=== PATIENT | female | born 1985 | race African-American/Black ===

== ENCOUNTER 2016-12-25 17:39 | Emergency (ER) | payer OTHER ==
[~2016-12-25] VITALS: Ht 172.7 cm; Wt 164.2 kg
[~2016-12-25 17:39] MED LIST: ACYCLOVIR400 MG ORAL; ALBUTEROL SULF8.5 GM INH; AZITHROMYCIN250 MG ORAL; FLEXERIL10 MG PO; IBUPROFEN600 MG ORAL; KEFLEX500 MG ORAL; MYLANTA30 M1 GT; NAPROSYN500 M1 ORAL; NORCO 5-325 TA1 EACH ORAL; NORCO 5-325 TA1 EACH PO; PROMETHAZINE-C118 M1 ORAL; ULTRAM50 MG ORAL
[2016-12-25] MEDS ORDERED: TESSALON PERLE100 MG ORAL (18:25)
[2016-12-25] MEDS ORDERED: AMOXICILLIN500 MG ORAL (18:25)
[2016-12-25 18:46] VITALS: BP 136/80
--- NOTE | 2016-12-27 13:44 | Emergency Room Report ---
History of Present Illness General Chief Complaint: Chest Pain Source: Patient Present Illness HPI The patient is a 31-year-old female presenting for possible upper respiratory infection and chest pain. The patient states that she has had a dry cough, subjective fevers, and sore throat for the past 2 weeks. She has tried multiple [id number] medications which have not helped. She denies any sick contacts recent travel. She is also complaining of left-sided chest pain which began yesterday it is described as a 7/10 constant dull ache. The pain radiates to the left shoulder. She states that she has had this in the past and has seen a commuter pilot but has not been diagnosed with anything. She states that the pain began after eating. She has tried aspirin which has not helped. She denies any known reason for the onset of chest pain including physical activity or injury. She denies any other symptoms including nausea, vomiting, SOB, rash, back pain, abd pain Allergies: Coded Allergies: No Known Allergies (Unverified , 09/03/12) Patient History Past Medical History: see triage record Pertinent Family History: none Last Menstrual Period: 12/08/16 Now: No Reviewed Nursing Documentation: PMH: Agreed, PSxH: Agreed Nursing Documentation-PMH Past Medical History: No Stated History Hx Asthma: Yes Review of Systems All Other Systems: negative except mentioned in HPI Physical Exam Vital Signs Date Time Temp Pulse Resp B/P Pulse Ox O2 Delivery O2 Flow Rate FiO2 12/25/16 17:56 70 16 136/80 95 Room Air Sp02 EP Interpretation: reviewed, normal General Appearance: no apparent distress, alert, GCS 15, non-toxic Head: normocephalic, atraumatic Eyes: bilateral eye PERRL, bilateral eye normal inspection ENT: hearing grossly normal, no angioedema, normal voice, tonsillar swelling, pharyngeal erythema Neck: full range of motion, supple/symm/no masses Respiratory: chest non-tender, lungs clear, normal breath sounds, no respiratory distress, no wheezing, speaking full sentences Cardiovascular #1: normal inspection, normal peripheral pulses, regular rate, rhythm, no edema, no murmur Gastrointestinal: normal bowel sounds, non tender, soft, non-distended, no guarding, no rebound Neurologic: alert, oriented x3, responsive, motor strength/tone normal, sensory intact, speech normal Psychiatric: judgement/insight normal, memory normal, mood/affect normal, no suicidal/homicidal ideation Skin: normal color, no rash, warm/dry, well hydrated Lymphatic: no adenopathy Medical Decision Making PA Attestation Dr. Thapa is my supervising physician. Patient management was discussed with my supervising physician Diagnostic Impression: Primary Impression: Pharyngitis, acute Qualified Codes: J02.9 - Acute pharyngitis, unspecified Additional Impression: Chest pain Qualified Codes: R07.9 - Chest pain, unspecified ER Course The patient is a 31-year-old female presenting for possible upper respiratory infection and chest pain Differential diagnosis include but not limited to pharyngitis, sinusitis, AOM, bronchitis, PNA Differential diagnosis include but not limited to ACS, PE,CHF, pneumonia, gastritis Physical exam: Vitals within normal limits. Afebrile. No apparent distress HEENT exam: There is bilateral tonsillar edema, erythema, and exudate. Uvula midline. Moist mucous membranes. RRR. No chest tenderness. Lungs CTA bilat. There is no cervical lymphadenopathy. Skin is warm and dry. No rash EKG unremarkable. The patient will be discharged home with a prescription for amoxicillin and is given ER precautions. Patient will followup with primary care and commuter pilot. EKG Diagnostic Results Rate: normal Rhythm: NSR ST Segments: no acute changes ASA given to the pt in ED: No PA Scribe Text EKG was reviewed and read with my supervising physician. No acute ST segment changes are seen. Normal rate and rhythm. No acute changes. Last Vital Signs Date Time Temp Pulse Resp B/P Pulse Ox O2 Delivery O2 Flow Rate FiO2 12/25/16 18:46 78 16 136/80 96 Room Air Status: improved Disposition: HOME, SELF-CARE Condition: Improved Scripts Benzonatate* (TESSALON PERLE*) 100 Mg Capsule 100 MG ORAL THREE TIMES A DAY, #15 PERLE Prov: TERZIAN,ROSY P.A. 12/25/16 Amoxicillin* (AMOXIL*) 500 Mg Capsule 500 MG ORAL Q12HR, #20 CAP Prov: TERZIAN,ROSY P.A. 12/25/16 Referrals: [facility],REFERRING (PCP) Patient Instructions: Nonspecific Chest Pain Additional Instructions: I discussed my findings with the patient. All questions and concerns have been answered. Treatment and medication compliance have been addressed. I advised the patient that they need to follow up with PMD in 3-5 days. Return to ED if symptoms worsen, new symptoms arise, or if needed for any reason. Patient verbalized understanding of discharge instructions. The patient will follow up with commuter pilot and Primary doctor as discussed ROSY ABDALLA December 27, 2016 13:44
== END 2016-12-25 18:48 | disposition home or self-care (01) ==
LOC: EMR 18:15
DX: J02.9 Acute pharyngitis, unspecified (principal); R07.9 Chest pain, unspecified; M25.512 Pain in left shoulder; J45.909 Unspecified asthma, uncomplicated
CPT/HCPCS: 99284

== ENCOUNTER 2018-06-14 19:34 | Emergency (ER) | payer SELFPAY ==
[~2018-06-14] VITALS: Ht 170.2 cm; Wt 163.3 kg
[~2018-06-14 19:34] MED LIST changes: +AMOXICILLIN500 MG ORAL; +TESSALON PERLE100 MG ORAL
[2018-06-14] MEDS ORDERED: Dicyclomine HCl 10mg/5ml oral soln ORAL ONE (20:15)
[2018-06-14] MEDS ORDERED: Mylanta II UD 30ml ORAL ONE (20:15)
[2018-06-14] MEDS ORDERED: Lidocaine 2% Visc 15ml soln ORAL ONE (20:15)
[2018-06-14] MEDS ORDERED: Ketorolac 30mg Inj IV ONE (20:15)
--- NOTE | 2018-06-14 20:32 | Emergency Room Report ---
History of Present Illness General Chief Complaint: Pain Source: Patient Present Illness HPI Patient is a 32-year-old female who presented after increased fever and epigastric pain. The patient reports having increased intermittent abdominal discomfort. This did not radiate. Patient associated fever up to 38.5. Patient not been vomiting. She reports having generalized body aches. She denies any dysuria. She denied any cough or sore throat. Allergies: Coded Allergies: No Known Allergies (Unverified , 09/03/12) Patient History Past Medical History: see triage record Last Menstrual Period: 05/19/2018 Now: No : 0 Para: 0 Reviewed Nursing Documentation: PMH: Agreed; PSxH: Agreed Nursing Documentation-PMH Past Medical History: No History, Except For Hx Asthma: Yes Review of Systems All Other Systems: negative except mentioned in HPI Physical Exam Vital Signs Date Time Temp Pulse Resp B/P (MAP) Pulse Ox O2 Delivery O2 Flow Rate FiO2 06/14/18 19:47 98.4 75 16 128/80 98 Sp02 EP Interpretation: reviewed, normal General Appearance: normal inspection, well appearing, no apparent distress, alert, obese Head: atraumatic ENT: normal ENT inspection, hearing grossly normal, normal voice Neck: normal inspection, full range of motion, supple, no bony tend Respiratory: normal inspection, lungs clear, normal breath sounds, no respiratory distress, no retraction, no wheezing Cardiovascular #1: regular rate, rhythm, no edema Gastrointestinal: normal inspection, normal bowel sounds, non tender, soft, no guarding, no hernia, tenderness - epigastric Genitourinary: no CVA tenderness Musculoskeletal: normal inspection, back normal, normal range of motion Neurologic: normal inspection, alert, responsive, speech normal Psychiatric: normal inspection, judgement/insight normal, mood/affect normal Skin: normal inspection, normal color, no rash Medical Decision Making Diagnostic Impression: Primary Impression: Urinary tract infection ER Course Patient presented for abdominal pain. Differential diagnoses included ischemic bowel, appendicitis, perforated viscus, abdominal aortic aneurysm, inferior myocardial infarction, viral gastroenteritis Because of complexity of patient's case laboratory testing and imaging studies were ordered. The laboratory testing was unremarkable except for some evidence of urinary infection. Patient was given protrusion for antibiotics as well as antispasmodic medications. She is advised to continue taking ibuprofen for fever.The patient is advised to follow up with primary care doctor in 1-2 days. Patient is advised to return if any worsening condition or if any changes in status that are concerning. This report is dictated with [employer] rolling mill operator software which may occasionally lead to discrepancies related to use of this software. Labs Test 06/14/18 20:40 06/14/18 20:45 06/14/18 21:25 White Blood Count 9.0 K/UL (4.8-10.8) Red Blood Count 4.99 M/UL (4.20-5.40) Hemoglobin 13.2 G/DL (12.0-16.0) Hematocrit 41.1 % (37.0-47.0) Mean Corpuscular Volume 82 FL (80-99) Mean Corpuscular Hemoglobin 26.5 PG (27.0-31.0) Mean Corpuscular Hemoglobin Concent 32.2 G/DL (32.0-36.0) Red Cell Distribution Width 13.2 % (11.6-14.8) Platelet Count 243 K/UL (150-450) Mean Platelet Volume 8.4 FL (6.5-10.1) Neutrophils (%) (Auto) 65.4 % (45.0-75.0) Lymphocytes (%) (Auto) 28.2 % (20.0-45.0) Monocytes (%) (Auto) 3.9 % (1.0-10.0) Eosinophils (%) (Auto) 1.4 % (0.0-3.0) Basophils (%) (Auto) 1.0 % (0.0-2.0) Sodium Level 139 MMOL/L (136-145) Potassium Level 3.5 MMOL/L (3.5-5.1) Chloride Level 105 MMOL/L (98-107) Carbon Dioxide Level 26 MMOL/L (21-32) Anion Gap 8 mmol/L (5-15) Blood Urea Nitrogen 10 mg/dL (7-18) Creatinine 1.2 MG/DL (0.55-1.30) Estimat Glomerular Filtration Rate > 60 mL/min (>60) Glucose Level 137 MG/DL (74-106) Calcium Level 8.9 MG/DL (8.5-10.1) Total Bilirubin 0.3 MG/DL (0.2-1.0) Aspartate Amino Transf (AST/SGOT) 19 U/L (15-37) Alanine Aminotransferase (ALT/SGPT) 18 U/L (12-78) Alkaline Phosphatase 46 U/L (46-116) Total Protein 6.6 G/DL (6.4-8.2) Albumin 3.3 G/DL (3.4-5.0) Globulin 3.3 g/dL Albumin/Globulin Ratio 1.0 (1.0-2.7) Lipase 79 U/L (73-393) Urine Color [place] Urine Appearance Slightly cloudy Urine pH 6 (4.5-8.0) Urine Specific [place] 1.020 (1.005-1.035) Urine Protein 1+ (NEGATIVE) Urine Glucose (UA) Negative (NEGATIVE) Urine Ketones 1+ (NEGATIVE) Urine Blood Negative (NEGATIVE) Urine Nitrite Negative (NEGATIVE) Urine Bilirubin Negative (NEGATIVE) Urine Ictotest Negative (NEGATIVE) Urine Urobilinogen 4 MG/DL (0.0-1.0) Urine Leukocyte Esterase 1+ (NEGATIVE) Urine RBC 0 /HPF (0 - 2) Urine WBC 5-10 /HPF (0 - 2) Urine Squamous Epithelial Cells Many /LPF (NONE/OCC) Urine Bacteria Moderate /HPF (NONE) Urine HCG, Qualitative Negative (NEGATIVE) Urine Opiates Screen Negative (NEGATIVE) Urine Barbiturates Screen Negative (NEGATIVE) Phencyclidine (PCP) Screen Negative (NEGATIVE) Urine Amphetamines Screen Negative (NEGATIVE) Urine Benzodiazepines Screen Negative (NEGATIVE) Urine Cocaine Screen Negative (NEGATIVE) Urine Marijuana (THC) Screen Negative (NEGATIVE) Lactic Acid Level 1.10 mmol/L (0.4-2.0) Last Vital Signs Date Time Temp Pulse Resp B/P (MAP) Pulse Ox O2 Delivery O2 Flow Rate FiO2 06/14/18 19:47 98.4 75 16 128/80 98 Status: improved Disposition: HOME, SELF-CARE Condition: Stable Scripts Dicyclomine Hcl* (DICYCLOMINE HCL*) 10 Mg Capsule 10 MG PO QID, #30 CAP Prov: Drew Avelar MD 06/14/18 Cephalexin* (KEFLEX*) 500 Mg Capsule 500 MG ORAL EVERY 6 HOURS, #40 CAP Prov: Drew Avelar MD 06/14/18 Referrals: NOT CHOSEN [facility]/,REFERRING (PCP) Drew Avelar MD Jun 14, 2018 20:32
[2018-06-14 20:40] VITALS: BP 133/73
[2018-06-14 21:04] LABS: EOSINOPHILS % (AUTO) 1.4 % (0.0-3.0); HEMATOCRIT 41.1 % (37.0-47.0); HEMOGLOBIN 13.2 G/DL (12.0-16.0); LYMPHOCYTES % (AUTO) 28.2 % (20.0-45.0); MEAN CORPUSCULAR VOLUME 82 FL (80-99); MONOCYTES % (AUTO) 3.9 % (1.0-10.0); NEUTROPHILS % (AUTO) 65.4 % (45.0-75.0); PLATELET COUNT 243 K/UL (150-450); RED BLOOD COUNT 4.99 M/UL (4.20-5.40); RED CELL DISTRIBUTION WIDTH 13.2 % (11.6-14.8)
[2018-06-14 21:57] LABS: APPEARANCE,URINE SLIGHTLY CLOUDY; BILIRUBIN, URINE NEGATIVE (NEGATIVE); COLOR,URINE AMBER; GLUCOSE, URINE (UA) NEGATIVE (NEGATIVE); KETONES,URINE 1+ (NEGATIVE); LEUKOCYTE ESTERASE ,URINE 1+ (NEGATIVE); NITRITE,URINE NEGATIVE (NEGATIVE); PH,URINE 6 (4.5-8.0); PROTEIN,URINE 1+ (NEGATIVE); UROBILINOGEN,URINE 4 MG/DL (0.0-1.0)
[2018-06-14 22:07] LABS: ANION GAP 8 mmol/L (5-15); BLOOD UREA NITROGEN 10 mg/dL (7-18); CALCIUM 8.9 MG/DL (8.5-10.1); CARBON DIOXIDE 26 MMOL/L (21-32); CHLORIDE 105 MMOL/L (98-107); CREATININE 1.2 MG/DL (0.55-1.30); POTASSIUM 3.5 MMOL/L (3.5-5.1); SODIUM 139 MMOL/L (136-145)
[2018-06-14 22:12] LABS: ALANINE AMINOTRANSFERASE 18 U/L (12-78); ALBUMIN 3.3 G/DL (3.4-5.0); ALKALINE PHOSPHATASE 46 U/L (46-116); ASPARTATE AMINO TRANSFERASE 19 U/L (15-37); BILIRUBIN,TOTAL 0.3 MG/DL (0.2-1.0)
[2018-06-14] MEDS ORDERED: DICYCLOMINE HCL10 MG PO (22:22)
[2018-06-14] MEDS ORDERED: CEPHALEXIN500 MG ORAL (22:22)
[2018-06-14 22:35] VITALS: BP 129/67
[2018-06-14 22:50] VITALS: BP 129/77
--- NOTE | 2018-06-15 11:14 | Diagnostic Imaging Report ---
EXAM: US Abdomen Limited, Right Upper Quadrant CLINICAL HISTORY: ABD PAIN TECHNIQUE: Real-time ultrasound of the right upper quadrant with image documentation. COMPARISON: No relevant prior studies available. FINDINGS: Limitations: Exam degraded by large body habitus. Liver: Liver diameter of 17.5 cm, within normal limits. No visible parenchymal lesions. No ductal dilatation. Gallbladder: Unremarkable. No gallstones. Gallbladder wall thickness of 2 mm is within normal limits. No pericholecystic fluid. Common bile duct: Common bile duct diameter of 3 mm. No stones. No dilation. Pancreas: Visualized portions of the pancreas appear unremarkable. Pancreatic body and tail are obscured by bowel gas. Right kidney: Right kidney measures 9.1 x 4.8 x 5.8 cm. Normal cortical thickness. No visible parenchymal lesions. No visible stones. No hydronephrosis. IMPRESSION: No acute findings.
== END 2018-06-14 23:03 | disposition home or self-care (01) ==
LOC: EMR 19:59
DX: N39.0 Urinary tract infection, site not specified (principal); J45.909 Unspecified asthma, uncomplicated
CPT/HCPCS: 36415; 76700; 80053; 80307; 81003; 81025; 83605; 83690; 85025; 87040; 87086; 96374; 96375; 99284; J1885; J2405

== ENCOUNTER 2018-11-12 14:38 | Emergency (ER) | payer SELFPAY ==
[~2018-11-12] VITALS: Ht 170.2 cm; Wt 165.6 kg
[~2018-11-12 14:38] MED LIST changes: +CEPHALEXIN500 MG ORAL; +DICYCLOMINE HCL10 MG PO
[2018-11-12 15:18] VITALS: BP 140/79
--- NOTE | 2018-11-12 15:23 | Emergency Room Report ---
History of Present Illness General Chief Complaint: Upper Respiratory Illness Source: Patient Present Illness HPI 33-year-old female patient presents ER complaining of cough and congestion for the past several days. Reports cough with sputum. Denies hemoptysis. Denies chest pain or shortness of breath. Denies history of asthma. Reports is been taking Motrin and Mucinex for congestion symptoms. Also complaining of lower back pain since yesterday. Reports history of similar pain symptoms in the past. Denies acute injury or trauma. Reports pain symptoms began when she was going to stand up. Denies radiation of pain symptoms. Denies bowel bladder incontinence. Denies history of IV drug use. Denies dysuria, hematuria. Denies vaginal discharge. Denies other aggravating or relieving factors. Allergies: Coded Allergies: No Known Allergies (Unverified , 09/03/12) Patient History Past Medical History: see triage record Last Menstrual Period: 3-23 Now: No Reviewed Nursing Documentation: PMH: Agreed; PSxH: Agreed Nursing Documentation-PMH Past Medical History: No History, Except For Hx Asthma: Yes Review of Systems All Other Systems: negative except mentioned in HPI Physical Exam Vital Signs Date Time Temp Pulse Resp B/P (MAP) Pulse Ox O2 Delivery O2 Flow Rate FiO2 11/12/18 14:49 98.1 56 20 140/79 97 Room Air Sp02 EP Interpretation: reviewed, normal General Appearance: well appearing, no apparent distress, alert, GCS 15, non- toxic Head: normocephalic, atraumatic Eyes: bilateral eye normal inspection, bilateral eye PERRL ENT: hearing grossly normal, normal pharynx, no angioedema, normal voice, uvula midline, moist mucus membranes Neck: full range of motion, no meningismus, no bony tend Respiratory: lungs clear, normal breath sounds, no rhonchi, no respiratory distress, no accessory muscle use, no wheezing, speaking full sentences Cardiovascular #1: regular rate, rhythm, no edema Gastrointestinal: non tender, soft, no mass, non-distended, no guarding, no rebound Genitourinary: no CVA tenderness Musculoskeletal: back normal, digits/nails normal, gait/station normal, normal range of motion, non-tender, no calf tenderness, Leticia's Sign negative Neurologic: alert, oriented x3, responsive, motor strength/tone normal, SLR negative, sensory intact Psychiatric: mood/affect normal Skin: no rash Medical Decision Making PA Attestation Dr. Ma is my supervising Physician whom patient management has been discussed with. Diagnostic Impression: Primary Impression: Upper respiratory infection Additional Impressions: Back pain Hepatic dysfunction ER Course Pt presents to ED c/o back pain and cough and congestion. DDX considered but are not limited to sprain, strain, cauda equina, epidural abscess, AAA, spinal cord compression, muscle spasm, herniated disc, viral URI , pneumonia, sinusitis. Low suspicion for cauda equina, no bowel or bladder incontinence or retention. No fever, nontoxic appearing, no radiation of pain, low suspicion for epidural mass. No abdominal pain, no blood pressure elevation, nontoxic appearing, low suspicion for AAA. VITAL SIGNS are WNL, patient is afebrile ER COURSE: Medication provided in the ER. Chest xray shows no acute disease per the preliminary reading. Lung sounds clear to auscultation, patient afebrile, low suspicion for pneumonia. Denies acute injury or trauma, does not require x-ray at this time. Will provide with medication in the ER. Followup with pain management and/or PT. Request referral from PCP. Followup wtih PCP for further MRI and/or CT imaging as needed. Denies vomiting or diarrhea, denies abdominal pain, does not require abdominal workup at this time. Elevated urobilinogen likely secondary to history of fatty liver and recent alcohol use. Advised patient to discontinue excessive alcohol use. Follow-up with primary care provider discussed referral to GI specialist. ER precautions given. Patient resting comfortably no acute distress states symptoms have improved while in the ER., DISCHARGE: At this time pt. is stable for d/c to home. At this time patient is resting comfortably, in no acute distress, nontoxic appearing, smiling and talking without difficulty. Will provide printed patient care instructions, and any necessary prescriptions. Patient instructed to follow with primary care provider for further treatment and referral as needed. Care plan and follow up instructions have been discussed with the patient prior to discharge. Patient reports understanding and agreement to treatment plan. Patient questions asked and answered. ER precautions given, patient instructed to return to ER immediately for any new or worsening of symptoms. - Please note that this Emergency Department Report was dictated using [employer] medical technologist technology software, occasionally this can lead to erroneous entry secondary to interpretation by the dictation equipment. Labs Test 3/27/19 15:24 Urine Color Yellow Urine Appearance Clear Urine pH 7 (4.5-8.0) Urine Specific [place] 1.015 (1.005-1.035) Urine Protein 1+ (NEGATIVE) Urine Glucose (UA) Negative (NEGATIVE) Urine Ketones 1+ (NEGATIVE) Urine Blood 1+ (NEGATIVE) Urine Nitrite Negative (NEGATIVE) Urine Bilirubin Negative (NEGATIVE) Urine Urobilinogen 12 MG/DL (0.0-1.0) Urine Leukocyte Esterase 1+ (NEGATIVE) Urine RBC 0-2 /HPF (0 - 2) Urine WBC 0-2 /HPF (0 - 2) Urine Squamous Epithelial Cells Few /LPF (NONE/OCC) Urine Bacteria Few /HPF (NONE) Urine Mucus Moderate /LPF (NONE/OCC) Chest X-Ray Diagnostic Results Chest X-Ray Diagnostic Results : Chest X-Ray Ordered: Yes # of Views/Limited/Complete: 1 View Indication: Chest Pain EP Interpretation: Yes PA Xray: Interpretation reviewed, by supervising MD, and agrees with findings. Interpretation: no consolidation, no effusion, no pneumothorax, no acute cardiopulmonary disease Impression: No acute disease BETY Scribe Text Andrews Sharpe PA-C Last Vital Signs Date Time Temp Pulse Resp B/P (MAP) Pulse Ox O2 Delivery O2 Flow Rate FiO2 11/12/18 15:18 98.1 62 22 140/79 98 Room Air Status: improved Disposition: HOME, SELF-CARE Condition: Stable Scripts Benzonatate* (TESSALON PERLE*) 100 Mg Capsule 100 MG ORAL THREE TIMES A DAY, #30 PERLE Prov: Josué Sharpe.A. 11/12/18 Methocarbamol* (ROBAXIN*) 500 Mg Tablet 500 MG PO TID, #21 TAB 0 Refills Prov: Josué Sharpe.A. 11/12/18 Ibuprofen* (MOTRIN*) 600 Mg Tablet 600 MG ORAL Q8H PRN for For Pain, #30 TAB 0 Refills Prov: Josué Sharpe.A. 11/12/18 Lidocaine (Lidocaine) 1 Each Adh..patch 5 % TP DAILY for 7 Days, #7 PATCH Prov: Josué Sharpe.A. 11/12/18 Patient Instructions: Alcoholic Liver Disease, [id number], Back Pain, Adult, [id number], Cirrhosis, Upper Respiratory Infection, Adult Additional Instructions: Patient instructed to follow up with primary care provider 3-5 and discuss further referral and imaging at that time. Patient instructed on rest, ice and heat. Discussed referral to GI specialist for further liver evaluation due to elevated urobilinogen. Do not take muscle relaxant prior to drinking, driving, or operating heavy machinery. Take medications as directed. Patient questions asked and answered. ER precautions given, patient instructed to return to ER immediately for any new or worsening of symptoms. [facility] [address] [facility] [address] [facility], [id number] [email or web address] Josué Sharpe Nov 12, 2018 15:23
[2018-11-12] MEDS ORDERED: Methocarbamol 500mg tab ORAL ONE (15:30)
[2018-11-12] MEDS ORDERED: Benzonatate 100mg Perles ORAL ONE (15:30)
[2018-11-12 15:31] LABS: APPEARANCE,URINE CLEAR; BILIRUBIN, URINE NEGATIVE (NEGATIVE); GLUCOSE, URINE (UA) NEGATIVE (NEGATIVE); KETONES,URINE 1+ (NEGATIVE); LEUKOCYTE ESTERASE ,URINE 1+ (NEGATIVE); NITRITE,URINE NEGATIVE (NEGATIVE); PH,URINE 7 (4.5-8.0); PROTEIN,URINE 1+ (NEGATIVE); UROBILINOGEN,URINE 12 MG/DL (0.0-1.0)
[2018-11-12 15:33] LABS: COLOR,URINE YELLOW
--- NOTE | 2018-11-12 15:56 | Diagnostic Imaging Report ---
Indication: Cough Comparison: 08/17/2016 A single view chest radiograph was obtained. Findings: Cardiomediastinal appearance is within normal limits for age. The lungs are clear. Pulmonary vascularity is appropriate. The diaphragmatic contour is smooth and costophrenic angles are sharp. No pleural effusions are identified. The bones are unremarkable. Impression: No acute findings
[2018-11-12] MEDS ORDERED: LIDOCAINE700 M1 TP (16:06)
[2018-11-12] MEDS ORDERED: ROBAXIN500 MG PO (16:06)
[2018-11-12] MEDS ORDERED: IBUPROFEN600 MG ORAL (16:06)
[2018-11-12] MEDS ORDERED: TESSALON PERLE100 MG ORAL (16:12)
[2018-11-12 16:32] VITALS: BP 140/79
== END 2018-11-12 16:20 | disposition home or self-care (01) ==
LOC: EMR 15:27
DX: J06.9 Acute upper respiratory infection, unspecified (principal); M54.9 Dorsalgia, unspecified; K76.9 Liver disease, unspecified; M54.5 Low back pain
CPT/HCPCS: 71045; 81003; 99283

== ENCOUNTER 2019-01-06 07:56 | Emergency (ER) | payer MEDICAID ==
[~2019-01-06] VITALS: Ht 172.7 cm; Wt 74.8 kg
[~2019-01-06 07:56] MED LIST changes: +LIDOCAINE700 M1 TP; +ROBAXIN500 MG PO
[2019-01-06 07:59] VITALS: BP 175/83
[2019-01-06] MEDS ORDERED: NKM (08:03)
--- NOTE | 2019-01-06 08:08 | NUR ---
ED Nurse Note: Patient walked into ED c/o right hip pain for 1 month. patient reports no injuy or fall. patient reports "it just gives out." patient reports 10/10 pain. patient also reports sorethroat for 3 days. patient denies fever or chills. patient is alert awake x4 ambulatory, breathing unlabored and even.
--- NOTE | 2019-01-06 08:57 | Emergency Room Report ---
History of Present Illness General Chief Complaint: Pain Source: Patient Present Illness HPI She has 2 separate complaints. She states that she has had right sided hip and right-sided leg pain for many months. She has been seen here previously for the same symptoms. She also has a history of low back pain. She denies weakness. She denies tingling or numbness. She states the pain is sharp and down her right leg and hip. She denies loss of bowel or bladder control. She has had x-rays of the back and the right hip and states that these have been negative. She has not followed up with an him specialist. Complains of sore throat for the past 3 days. She states it is painful when swallowing. She denies chest pain or shortness of breath. She denies fever chills. She states she does have ear fullness but denies ear pain. She denies headache or neck stiffness. She denies blurry vision. She has no other complaints. Allergies: Coded Allergies: No Known Allergies (Unverified , 09/03/12) Patient History Past Medical History: see triage record, asthma Social History: Denies: smoking, alcohol use, drug use Last Menstrual Period: 12/15/2018 Now: No Reviewed Nursing Documentation: PMH: Agreed; PSxH: Agreed Nursing Documentation-PMH Past Medical History: No History, Except For Hx Cardiac Problems: No Hx Hypertension: No Hx Pacemaker: No Hx Asthma: Yes Hx COPD: No Hx Diabetes: No Hx Cancer: No Hx Gastrointestinal Problems: No Hx Dialysis: No History Of Psychiatric Problem: No Hx Neurological Problems: No Hx Cerebrovascular Accident: No Hx Seizures: No Review of Systems All Other Systems: negative except mentioned in HPI Physical Exam Vital Signs Date Time Temp Pulse Resp B/P (MAP) Pulse Ox O2 Delivery O2 Flow Rate FiO2 01/06/19 07:59 98.1 64 16 95 Room Air 01/06/19 07:59 175/83 Sp02 EP Interpretation: reviewed, normal General Appearance: no apparent distress, alert, GCS 15, non-toxic, obese Head: normocephalic, atraumatic Eyes: bilateral eye normal inspection, bilateral eye PERRL ENT: hearing grossly normal, no angioedema, normal voice, TMs + canals normal, uvula midline, moist mucus membranes, tonsillar swelling, tonsillar exudate Neck: full range of motion, supple/symm/no masses Respiratory: chest non-tender, lungs clear, normal breath sounds, no respiratory distress, no retraction, no accessory muscle use, speaking full sentences Cardiovascular #1: regular rate, rhythm, no edema Gastrointestinal: normal bowel sounds, non tender, soft, non-distended, no guarding, no rebound Rectal: deferred Musculoskeletal: gait/station normal, normal range of motion, other - Pain with walking. No pain w/ ROM of R. hip. Neurologic: alert, oriented x3, responsive, motor strength/tone normal, sensory intact, speech normal Psychiatric: judgement/insight normal, memory normal, mood/affect normal, no suicidal/homicidal ideation Skin: normal color, no rash, warm/dry, well hydrated Medical Decision Making Diagnostic Impression: Primary Impression: Strep pharyngitis Additional Impression: Sciatica of right side ER Course Patient has findings on exam consistent with strep pharyngitis. There is no evidence of peritonsillar abscess or deep neck abscess. The patient overall is nontoxic and well-appearing. Patient was given penicillin IM. The patient other complaint of chronic right hip pain is likely sciatica related to degenerative disc disease. The patient is morbidly obese and likely has pain related to the pressure on the back and joints from obesity. The patient was instructed that she would need to follow-up with an him specialist and would also need to try to lose weight. Patient will be referred to the orthopedic urgent care. I have a low suspicion for a serious etiology to the patient's musculoskeletal pain. I have low suspicion for cauda equina or neurologic emergency. The patient is given close return precautions and follow- up instructions. Last Vital Signs Date Time Temp Pulse Resp B/P (MAP) Pulse Ox O2 Delivery O2 Flow Rate FiO2 01/06/19 07:59 98.1 64 16 175/83 95 Room Air Status: improved Disposition: HOME, SELF-CARE Condition: Improved Jazmine Thapa DO January 06, 2019 08:56
[2019-01-06] MEDS ORDERED: IBUPROFEN800 MG ORAL (08:59)
[2019-01-06] MEDS ORDERED: Ketorolac 60mg Inj IM ONE (09:00)
[2019-01-06] MEDS ORDERED: Bicillin LA 1.2MMU/2ML SYR IM ONE (09:00)
[2019-01-06 09:05] VITALS: BP 175/83
--- NOTE | 2019-01-06 09:05 | NUR ---
ER DISCHARGE NOTE: Patient is cleared to be discharged per ERMD Dr. Thapa, pt is aox4, on room air, with stable vital signs. pt was given dc and prescription instructions, pt was able to verbalize understanding, pt id band removed without complications. pt is able to ambulate with steady gait. pt took all belongings.
== END 2019-01-06 09:05 | disposition home or self-care (01) ==
LOC: EMR 09:05
DX: M54.31 Sciatica, right side (principal); J02.9 Acute pharyngitis, unspecified; E66.01 Morbid (severe) obesity due to excess calories; Z68.25 Body mass index [BMI] 25.0-25.9, adult
CPT/HCPCS: 96372; 99283; J0561

== ENCOUNTER 2019-04-30 07:28 | Emergency (ER) | payer MEDICAID ==
[~2019-04-30] VITALS: Ht 170.2 cm; Wt 165.6 kg
[~2019-04-30 07:28] MED LIST changes: +IBUPROFEN800 MG ORAL; +NKM
[2019-04-30 07:45] VITALS: BP 144/96
--- NOTE | 2019-04-30 07:45 | NUR ---
ED Nurse Note: Patient walked in to ER from home due to ascitic pain 10/. Patient is alert and oriented x4 and ambulatory. Skin clean and intact. Calm and cooperative. No acute distress noted at this moment.
[2019-04-30] MEDS ORDERED: IBUPROFEN600 MG ORAL (07:59)
[2019-04-30] MEDS ORDERED: ROBAXIN-750750 MG PO (07:59)
[2019-04-30] MEDS ORDERED: Ketorolac 30mg Inj IM ONE (08:00)
--- NOTE | 2019-04-30 08:00 | Emergency Room Report ---
History of Present Illness General Chief Complaint: Lower Back Pain or Injury Source: Patient Present Illness HPI Disclaimer: Please note that this report is being documented using [employer] technology. This can lead to erroneous entry secondary to incorrect interpretation by the dictating instrument. HPI: 33-year-old female history of morbid obesity and chronic lower back pain presents for evaluation of back pain. Patient reports symptoms for approximately 2 days. There was no trauma, no fall, no injury or impact. She reports midline lower back pain radiating to both sides and into the buttocks. Denies any numbness or tingling in the legs. She states she was unable to stand up fully yesterday and it was difficult for her to walk though that seems to be improving. She is ambulatory today. Denies any urinary retention or fecal incontinence. Denies any saddle anesthesia or unilateral weakness. Denies any IV drug or other IV medications. Denies fever or chills. Patient has a history of chronic lower back pain but is not yet followed up with an orthopedic surgeon. Does not do sports rehab or any other disease altering modifications. She has been using 800 mg of ibuprofen without improvement. PMH: Obesity, chronic back pain PSH: See chart Allergies: Denies Social Hx: His IV drug use Allergies: Coded Allergies: No Known Allergies (Unverified , 09/03/12) Patient History Last Menstrual Period: 04/23/19 Now: No Nursing Documentation-PM Past Medical History: No History, Except For Hx Cardiac Problems: No Hx Hypertension: No Hx Pacemaker: No Hx Asthma: Yes Hx COPD: No Hx Diabetes: No Hx Cancer: No Hx Gastrointestinal Problems: No Hx Dialysis: No Hx Neurological Problems: No Hx Cerebrovascular Accident: No Hx Seizures: No Review of Systems All Other Systems: negative except mentioned in HPI Physical Exam Vital Signs Date Time Temp Pulse Resp B/P (MAP) Pulse Ox O2 Delivery O2 Flow Rate FiO2 04/30/19 07:37 97.9 63 18 144/96 (112) 97 Room Air Morbidly obese. Midline and bilateral upper lumbar pain. No step-off. Sensation in the lower extremities is fine. Ambulating without difficulty General: Awake and alert, no acute distress HEENT: NC/AT. EOMI. Resp: Normal work of breathing. Abdomen: Morbidly obese abdomen Skin: Intact. No abrasions, laceration or rash over the exposed skin MSK: Normal tone and bulk. Moving all extremities. No obvious deformity. Ambulatory without difficulty. Neuro: Awake and alert. Mentating appropriately. Sensation is intact over the dermatomes of the lower extremities bilaterally. No saddle anesthesia. Back/Spine: No midline tenderness in the cervical, thoracic spine. There is some tenderness in the midline over the upper lumbar spine, significant paraspinal tenderness and tenderness in the mid scapular line in the lumbosacral region. No step-off or deformity. Medical Decision Making Diagnostic Impression: Primary Impression: Lumbosacral pain ER Course This a 33-year-old female history of morbid obesity presenting for evaluation of lower back pain. Patient has a history of chronic low back pain and since there is no recent trauma, does not inject IV drugs or participate in other high risk behaviors likely lumbosacral strain. She has no symptoms of cauda equina and appears to be improving over the past few days. She will be discharged home with ibuprofen, muscle relaxers and sports PT instructions. She is instructed to follow-up with orthopedic surgery through her primary care doctor. We discussed reasons to return to the emergency department. She understands and agrees with treatment plan. Last Vital Signs Date Time Temp Pulse Resp B/P (MAP) Pulse Ox O2 Delivery O2 Flow Rate FiO2 04/30/19 07:37 97.9 63 18 144/96 (112) 97 Room Air Disposition: HOME, SELF-CARE Condition: Stable Scripts Methocarbamol* (ROBAXIN-750*) 750 Mg Tablet 750 MG PO TID, #21 TAB 0 Refills Prov: Dionicio Delong MD 04/30/19 Ibuprofen* (MOTRIN*) 600 Mg Tablet 600 MG ORAL Q8H PRN for For Pain, #30 TAB 0 Refills Prov: Dionicio Delong MD 04/30/19 Referrals: Kasey Dow [facility] Patient Instructions: Low Back Sprain With Rehab-SportsMed Additional Instructions: Please follow-up with your doctor to refer you to orthopedic surgery for evaluation of back pain. Perform the back stretching exercises listed here in your discharge paperwork, continue using ibuprofen and the muscle relaxers as needed. Return to the emergency department if you experience any sudden weakness in the leg, inability to feel your legs, inability to pass urine, loss of bowel control, high fevers or any other sudden changes in your health Dionicio Delong MD Apr 30, 2019 08:00
[2019-04-30 08:26] VITALS: BP 144/96
--- NOTE | 2019-04-30 08:27 | NUR ---
ED Nurse Note: Pt cleared by health care Provider for discharge. DC instructions/prescription was given and explained to pt and verbalized understanding of teachings. All medical deviecs such as ID band removed. Pt is AAO x4, ambulatory and left with all personal belongings.
== END 2019-04-30 08:27 | disposition home or self-care (01) ==
LOC: EMR 07:58
DX: M54.5 Low back pain (principal); G89.29 Other chronic pain; J45.909 Unspecified asthma, uncomplicated; E66.01 Morbid (severe) obesity due to excess calories; Z68.43 Body mass index [BMI] 50.0-59.9, adult
CPT/HCPCS: 96372; J1885; Z7502; 99283

== ENCOUNTER 2020-06-15 11:57 | Emergency (ER) | payer MEDICAID ==
[~2020-06-15] VITALS: Ht 170.2 cm; Wt 158.8 kg
[~2020-06-15 11:57] MED LIST changes: +ROBAXIN-750750 MG PO
[2020-06-15 12:13] VITALS: BP 129/78
--- NOTE | 2020-06-15 12:27 | Emergency Room Report ---
History of Present Illness General Chief Complaint: Sore Throat Source: Patient Present Illness HPI 34-year-old female with no significant past medical history here complaining of 2 days of bilateral tonsillar swelling and pain. Patient can speak in full sentences reports that can swallow however it hurts when she swallows. No drooling noted. No anaphylaxis noted. Patient denies any cough or congestion, shortness of breath, headache and dizziness. Denies any fever and chills. White patches are noted bilaterally. Patient airway is clear. Breathing within normal limits. Has not taken medication for symptom relief. Denies . Allergies: Coded Allergies: No Known Allergies (Unverified , 09/03/12) COVID-19 Screening Contact w/high risk pt: No Experienced COVID-19 symptoms?: No COVID-19 Testing performed MANAGER GAME: No Patient History Past Medical History: see triage record Past Surgical History: none Pertinent Family History: none Last Menstrual Period: last month Now: No Immunizations: UTD Reviewed Nursing Documentation: PMH: Agreed; PSxH: Agreed Nursing Documentation-PMH Hx Cardiac Problems: No Hx Hypertension: No Hx Pacemaker: No Hx Asthma: Yes Hx COPD: No Hx Diabetes: No Hx Cancer: No Hx Gastrointestinal Problems: No Hx Dialysis: No Hx Neurological Problems: No Hx Cerebrovascular Accident: No Hx Seizures: No Review of Systems All Other Systems: negative except mentioned in HPI Physical Exam Vital Signs Date Time Temp Pulse Resp B/P (MAP) Pulse Ox O2 Delivery O2 Flow Rate FiO2 06/15/20 12:03 98.2 73 17 129/78 (95) 96 Room Air Sp02 EP Interpretation: reviewed, normal General Appearance: no apparent distress, alert, GCS 15, non-toxic Head: normocephalic, atraumatic Eyes: bilateral eye normal inspection, bilateral eye PERRL ENT: tonsillar swelling, tonsillar exudate Neck: supple, other - Anterior cervical lymphadenopathy Respiratory: chest non-tender, lungs clear, normal breath sounds, speaking full sentences Cardiovascular #1: regular rate, rhythm, no edema Gastrointestinal: soft Rectal: deferred Genitourinary: no CVA tenderness Musculoskeletal: back normal Neurologic: alert, motor strength/tone normal, oriented x3, sensory intact, responsive, speech normal Psychiatric: judgement/insight normal, memory normal, mood/affect normal, no suicidal/homicidal ideation Skin: no rash Lymphatic: adenopathy - Anterior cervical Medical Decision Making PA Attestation All my diagnosis and treatment plans were reviewed ad discussed with my supervising physician Dr. Ma Diagnostic Impression: Primary Impression: Tonsillitis with exudate ER Course 34-year-old female with no significant past medical history here complaining of 2 days of bilateral tonsillar swelling and pain. Patient can speak in full sentences reports that can swallow however it hurts when she swallows. No drooling noted. No anaphylaxis noted. Patient denies any cough or congestion, shortness of breath, headache and dizziness. Denies any fever and chills. White patches are noted bilaterally. Patient airway is clear. Breathing within normal limits. Has not taken medication for symptom relief. Denies . Ddx considered but are not limited to: strep pharyngitis, URI, tonsillitis, peritonsillar abscess, influneza, coronavirus, Vital signs: are WNL, pt. is afebrile H&PE are most consistent with: Tonsillitis with exudate ORDERS: Azithromycin, prednisone, Motrin ED INTERVENTIONS: Toradol IM, dexamethasone IM, Rocephin IM DISCHARGE: At this time pt. is stable for d/c to home. Will provide printed pat ient care instructions, and any necessary prescriptions. Care plan and follow up instructions have been discussed with the patient prior to discharge. Take medication as directed, follow-up primary care provider, Covid testing recommended, if worsening symptoms return to the emergency room Last Vital Signs Date Time Temp Pulse Resp B/P (MAP) Pulse Ox O2 Delivery O2 Flow Rate FiO2 06/15/20 12:13 98.2 89 17 129/78 96 Room Air Disposition: HOME, SELF-CARE Condition: Stable Scripts Ibuprofen* (MOTRIN*) 600 Mg Tablet 600 MG ORAL Q8H PRN for FOR PAIN, #30 TAB 0 Refills Prov: Tony Spann 06/15/20 Prednisone* (PREDNISONE*) 20 Mg Tablet 40 MG ORAL DAILY for 5 Days, #10 TAB Prov: Tony Spann 06/15/20 Azithromycin* (ZITHROMAX*) 250 Mg Tablet 250 MG ORAL DAILY, #6 TAB 0 Refills Take two tables once daily for 1 day, then one tablet once daily for 4 days. Prov: Tony Spann 06/15/20 Patient Instructions: Tonsillitis Additional Instructions: Take medication as directed, follow primary care provider, if worsening symptoms return to the emergency room Tony Spann Jun 15, 2020 12:27
[2020-06-15] MEDS ORDERED: ZITHROMAX250 MG ORAL (12:28)
[2020-06-15] MEDS ORDERED: PREDNISONE20 MG ORAL (12:28)
[2020-06-15] MEDS ORDERED: IBUPROFEN600 M1 ORAL (12:28)
[2020-06-15] MEDS ORDERED: Lidocaine 1% MPF 10mg/ml 5ml INJ ONE (12:30)
[2020-06-15] MEDS ORDERED: Ketorolac 30mg Inj IM ONE (12:30)
[2020-06-15 12:38] VITALS: BP 129/78
[2020-06-15] MEDS ORDERED: Bicillin LA 1.2MMU/2ML SYR IM ONE (12:45)
== END 2020-06-15 12:38 | disposition home or self-care (01) ==
LOC: EMR 12:20
DX: J03.90 Acute tonsillitis, unspecified (principal)
CPT/HCPCS: 96372; J0696; J1100; J1885; Z7502; 99283